=== PATIENT | female | born 1985 | race Caucasian/White ===

== ENCOUNTER 2017-08-02 17:38 | Outpatient (CLI) | END 2017-08-02 21:23 | disposition home or self-care (01) ==

== ENCOUNTER 2017-08-03 20:18 | Outpatient (CLI) | END 2017-08-03 21:37 | disposition home or self-care (01) ==

== ENCOUNTER 2017-08-04 18:10 | Inpatient (IN) | END 2017-08-14 13:42 | disposition home or self-care (01) | DRG 775 ==